=== PATIENT | female | born 1995 | race African-American/Black ===

== ENCOUNTER 2021-12-04 15:12 | Outpatient (CLI) | payer MEDICAID | END 2021-12-04 15:13 | disposition critical access hospital (66) | LOC: EMS 15:12 | DX: R45.851 Suicidal ideations (principal) | CPT/HCPCS: A0425; A0429; A0999 ==

== ENCOUNTER 2021-12-04 15:31 | Emergency (ER) | payer MEDICAID ==
[2021-12-04] MEDS ORDERED: LORazepam 1 MG TABLET PO STA (15:40)
--- NOTE | 2021-12-04 15:43 | ED Physician Documentation ---
PD HPI MHE - Stated complaint Stated Complaint: SI - History obtained from History obtained from: Patient - History of Present Illness Pain level max: 0 Pain level now: 0 - Additional information Additional information: Patient is a 26-year-old female who presents to the emergency department complaint of increase in anxiety. She states that she has been feeling more anxious at home. She states that she has a longstanding medical history that includes depression. She states that she had a suicide attempt about 6 to 7 years ago by cutting her wrist. But she adamantly denies feeling suicidal today. She states that she wanted her vital signs checked and so she called 911 for a vital sign check. She states that the paramedics asked if she wanted to have a mental health evaluation and she requested to go to [facility] where her psychiatrist is. She states that the paramedics then told her they cannot take her there and brought her here instead. Patient states she has been taking her medications as prescribed. She feels safe at home. She does state that she has been clean from drugs for about 2 months. She states that she occasionally is concerned that her old friends may come back to try to harm her. She states that she does not feel like they are trying to harm her today. Patient was asked 3-4 times by myself and by the nurse if she was suicidal or homicidal. The patient adamantly denies this every time. She states she has not been suicidal for a very long time. Review of Systems Ten Systems: 10 systems reviewed and negative Constitutional: denies: Fever, Chills Ears: denies: Ear pain Nose: denies: Rhinorrhea / runny nose, Congestion Throat: denies: Sore throat Cardiac: denies: Chest pain / pressure, Palpitations, Calf pain Respiratory: denies: Dyspnea, Cough, Wheezing GI: denies: Abdominal Pain, Nausea, Vomiting, Diarrhea, Hematemesis, Bloody / black stool : denies: Dysuria, Frequency, Hesitancy Skin: denies: Rash Musculoskeletal: denies: Neck pain, Back pain Neurologic: denies: Headache Psychiatric: reports: Anxiety. denies: Depressed, Suicidal, Homicidal, Hallucinations, Delusions, Insomnia PD PAST MEDICAL HISTORY - Past Medical History Past Medical History: Yes Psych: Anxiety, Bipolar disorder - Past Surgical History Past Surgical History: No - Allergies Allergies/Adverse Reactions: Allergies Allergy/AdvReac Type Severity Reaction Status Date / Time No Known Drug Allergies Allergy Verified 12/04/21 15:42 - Living Situation Living Situation: reports: With family Living Arrangement: reports: At home - Social History Does the pt smoke?: No Substance Use and Type: Other (Has a history of drug use, she states no drugs for 2 months) - Family History Family history: reports: Non contributory PD ED PE NORMAL - Vitals Vital signs reviewed: Yes - General General: Alert and oriented X 3, No acute distress, Well developed/nourished - HEENT HEENT: Atraumatic, PERRL, Moist mucous membranes - Neck Neck: Supple, no meningeal sign - Cardiac Cardiac: RRR, Strong equal pulses - Respiratory Respiratory: No respiratory distress, Clear bilaterally - Abdomen Abdomen: Soft, Non tender, Non distended - Derm Derm: Warm and dry - Extremities Extremities: No edema, No calf tenderness / cord - Neuro Neuro: Alert and oriented X 3 - Psych Psych: Other (Appears anxious) Results - Vitals Vitals: Vital Signs - 24 hr 12/04/21 12/04/21 15:33 16:18 Temperature 37.0 C Heart Rate 88 82 Respiratory 16 16 Rate Blood Pressure 126/86 H 108/80 O2 Saturation 97 97 Oxygen O2 Source Room air - Labs Labs: Laboratory Tests 12/04/21 12/04/21 12/04/21 15:45 15:45 15:45 WBC 9.9 RBC 4.21 Hgb 12.3 Hct 36.9 L MCV 87.6 MCH 29.2 MCHC 33.3 RDW 12.2 Plt Count 275 MPV 8.3 Neut # (Auto) 6.0 Lymph # (Auto) 3.1 [place] # (Auto) 0.7 Eos # (Auto) 0.0 Baso # (Auto) 0.0 Absolute Nucleated RBC 0.00 Nucleated RBC % 0.0 Sodium 136 Potassium 3.7 Chloride 105 Carbon Dioxide 25 Anion Gap 6.0 BUN 13 Creatinine 0.8 Estimated GFR (MDRD) 106 Glucose 101 H Calcium 9.0 Total Bilirubin 0.2 AST 12 ALT 10 Alkaline Phosphatase 81 Total Protein 7.5 Albumin 4.3 Globulin 3.2 Albumin/Globulin Ratio 1.3 Lipase 40 TSH 1.77 Urine Color Urine Clarity Urine pH Ur Specific [place] Urine Protein Urine Glucose (UA) Urine Ketones Urine Occult Blood Urine Nitrite Urine Bilirubin Urine Urobilinogen Ur Leukocyte Esterase Ur Microscopic Review Urine Culture Comments Urine HCG, Qual Last Dose Date Last Dose Time Salicylates < 6.0 Urine Opiates Screen Ur Oxycodone Screen Urine Methadone Screen Ur Propoxyphene Screen Acetaminophen < 10 L Ur Barbiturates Screen Ur Tricyclics Screen Ur Phencyclidine Scrn Ur Amphetamine Screen U Methamphetamines Scrn U Benzodiazepines Scrn [place] Urine Cocaine Screen U Cannabinoids Screen Ethyl Alcohol < 5.0 SARS-CoV-2 (PCR) 12/04/21 12/04/21 12/04/21 15:45 16:08 16:12 WBC RBC Hgb Hct MCV MCH MCHC RDW Plt Count MPV Neut # (Auto) Lymph # (Auto) [place] # (Auto) Eos # (Auto) Baso # (Auto) Absolute Nucleated RBC Nucleated RBC % Sodium Potassium Chloride Carbon Dioxide Anion Gap BUN Creatinine Estimated GFR (MDRD) Glucose Calcium Total Bilirubin AST ALT Alkaline Phosphatase Total Protein Albumin Globulin Albumin/Globulin Ratio Lipase TSH Urine Color YELLOW Urine Clarity CLEAR Urine pH 6.5 Ur Specific [place] <=1.005 Urine Protein NEGATIVE Urine Glucose (UA) NEGATIVE Urine Ketones NEGATIVE Urine Occult Blood NEGATIVE Urine Nitrite NEGATIVE Urine Bilirubin NEGATIVE Urine Urobilinogen 0.2 (NORMAL) Ur Leukocyte Esterase NEGATIVE Ur Microscopic Review NOT INDICATED Urine Culture Comments NOT INDICATED Urine HCG, Qual NEGATIVE Last Dose Date UNK Last Dose Time UNK Salicylates Urine Opiates Screen NEGATIVE Ur Oxycodone Screen NEGATIVE Urine Methadone Screen NEGATIVE Ur Propoxyphene Screen NEGATIVE Acetaminophen Ur Barbiturates Screen NEGATIVE Ur Tricyclics Screen NEGATIVE Ur Phencyclidine Scrn NEGATIVE Ur Amphetamine Screen NEGATIVE U Methamphetamines Scrn NEGATIVE U Benzodiazepines Scrn NEGATIVE [place] 0.76 Urine Cocaine Screen NEGATIVE U Cannabinoids Screen NEGATIVE Ethyl Alcohol SARS-CoV-2 (PCR) NOT DETECTED PD MEDICAL DECISION MAKING - ED course Complexity details: reviewed results, re-evaluated patient, considered differential, d/w patient ED course: No acute findings on laboratory testing. Patient denies any suicidal or homicidal ideation. She states she was feeling anxious earlier today but that feeling has resolved as well. She is able to contract for safety. She would like to go home at this time. She feels safe at home and will be there with her family. Patient does not want any medications at this time. She will follow-up with her psychiatrist. Patient counseled regarding signs and symptoms for which I believe and urgent re-evaluation would be necessary. Patient with good understanding of and agreement to plan and is comfortable going home at this time This document was made in part using voice recognition software. While efforts are made to proofread this document, sound alike and grammatical errors may occur. Patient declines a social work evaluation as well. Departure - Departure Disposition: Home, Self Care Clinical Impression: Anxiety Depression Qualifiers: Depression Type: unspecified Qualified Code(s): F32.A - Depression, unspecified Condition: Good Instructions: ED Depression Follow-Up: Your,doctor in 1 week [Other] Comments: Please follow-up with your doctor and your psychiatrist for further care. Your testing does not show any acute abnormalities today. You have stated multiple times that you are not suicidal. You have contracted for safety. Crisis Line and is available to talk to someone [email or web address] is also available to chat with someone online if you prefer. There are also many resources on this website and apps for your phone to help with your mental health You can also text the word START to [phone] to chat with someome via text. Discharge Date/Time: 12/04/21 16:48
[2021-12-04 15:50] LABS: HCT - HEMATOCRIT 36.9 % (37.0-47.0); HGB - HEMOGLOBIN 12.3 g/dL (12.0-16.0); LYMPHOCYTES # (AUTO) 3.1 10^3/uL (1.5-3.5); LYMPHOCYTES % (AUTO) 31.8 %; MEAN CORPUSCULAR HEMOGLOBIN 29.2 pg (27.0-31.0); MEAN CORPUSCULAR HGB CONC 33.3 g/dL (32.0-36.0); MEAN CORPUSCULAR VOLUME 87.6 fL (81.0-99.0); MEAN PLATELET VOLUME 8.3 fL (7.9-10.8); MONOCYTES # (AUTO) 0.7 10^3/uL (0.0-1.0); MONOCYTES % (AUTO) 7.1 %; NEUTROPHILS % (AUTO) 60.9 %; PLT - PLATELET COUNT 275 10^3/uL (130-450); RED BLOOD COUNT 4.21 10^6/uL (4.20-5.40); RED CELL DISTRIBUTION WIDTH 12.2 % (12.0-15.0); WHITE BLOOD COUNT 9.9 x10^3/uL (4.8-10.8)
[2021-12-04 16:04] LABS: ACETAMINOPHEN < 10 ug/mL (10-30); ALBUMIN 4.3 g/dL (3.2-5.5); ALBUMIN/GLOBULIN RATIO 1.3 (1.0-2.2); ALKALINE PHOSPHATASE 81 IU/L (42-121); ALT ALANINE AMINOTRANSFERASE 10 IU/L (10-60); AST ASPARTATE AMINOTRANSFERASE 12 IU/L (10-42); BILIRUBIN,TOTAL 0.2 mg/dL (0.2-1.0); BUN - BLOOD UREA NITROGEN 13 mg/dL (6-20); CARBON DIOXIDE - CO2 25 mmol/L (21-32); CHLORIDE 105 mmol/L (101-111); CREATININE 0.8 mg/dL (0.4-1.0); ETOH - ETHANOL < 5.0 mg/dL; GFR - MDRD 106 (>89); GLUCOSE 101 mg/dL (70-100); LIPASE 40 U/L (22-51); POTASSIUM 3.7 mmol/L (3.5-5.0); SALICYLATE < 6.0 mg/dL; SODIUM 136 mmol/L (135-145); TOTAL PROTEIN 7.5 g/dL (6.7-8.2)
[2021-12-04 16:16] LABS: MUDS CUTOFF CONCENTRATIONS CUTOFF CONC BELOW:
[2021-12-04 16:17] LABS: LITHIUM 0.76 mmol/L
[2021-12-04 16:17] LABS: BILIRUBIN,URINE NEGATIVE (NEGATIVE); GLUCOSE, URINE (UA) NEGATIVE (NEGATIVE); KETONES,URINE (UA) NEGATIVE (NEGATIVE); LEUKOCYTE ESTERASE, URINE NEGATIVE (NEGATIVE); NITRITE,URINE NEGATIVE (NEGATIVE); OCCULT BLOOD,URINE NEGATIVE (NEGATIVE); PH,URINE 6.5 PH (5.0-7.5); PROTEIN,URINE NEGATIVE (NEGATIVE); UROBILINOGEN,URINE 0.2 (NORMAL) E.U./dL (NORMAL)
[2021-12-04 16:18] VITALS: BP 108/80
[2021-12-04 16:24] LABS: CLARITY,URINE CLEAR (CLEAR)
[2021-12-04 16:25] LABS: HCG UR QUAL NEGATIVE
[2021-12-04 16:42] LABS: AMPHETAMINE SCREEN,URINE NEGATIVE (NEGATIVE); BARBITURATE SCREEN,UR NEGATIVE (NEGATIVE); BENZODIAZEPINES SCREEN, URINE NEGATIVE (NEGATIVE); COCAINE SCREEN URINE NEGATIVE (NEGATIVE); METHADONE SCREEN, URINE NEGATIVE (NEGATIVE); METHAMPHETAMINES SCREEN, URINE NEGATIVE (NEGATIVE); OPIATE SCREEN, URINE NEGATIVE (NEGATIVE); OXYCODONE SCREEN, URINE NEGATIVE (NEGATIVE); PROPOXYPHENE SCREEN, URINE NEGATIVE (NEGATIVE); THC CANNABINOID SCREEN, URINE NEGATIVE (NEGATIVE); TRICYCLIC ANTIDEPRESSANT,URINE NEGATIVE (NEGATIVE)
== END 2021-12-04 16:48 | disposition home or self-care (01) ==
LOC: ED 15:31
DX: F41.9 Anxiety disorder, unspecified (principal); F32.A Depression, unspecified; Z20.822 Contact with and (suspected) exposure to COVID-19
CPT/HCPCS: 36415; 80053; 80178; 80306; 80307; 80320; 80329; 81001; 81003; 81025; 83690; 84443; 85025; 87086; 99283; 99284

== ENCOUNTER 2022-02-09 13:03 | Outpatient (CLI) | payer MEDICAID | END 2022-02-09 13:04 | disposition critical access hospital (66) | LOC: EMS 13:03 | DX: R46.4 Slowness and poor responsiveness (principal); R47.81 Slurred speech; F41.9 Anxiety disorder, unspecified | CPT/HCPCS: A0425; A0429; A0999 ==

== ENCOUNTER 2022-02-09 13:30 | Emergency (ER) | payer MEDICAID ==
[2022-02-09 14:23] LABS: HCT - HEMATOCRIT 40.5 % (37.0-47.0); HGB - HEMOGLOBIN 13.4 g/dL (12.0-16.0); LYMPHOCYTES # (AUTO) 2.5 10^3/uL (1.5-3.5); LYMPHOCYTES % (AUTO) 23.4 %; MEAN CORPUSCULAR HEMOGLOBIN 28.4 pg (27.0-31.0); MEAN CORPUSCULAR HGB CONC 33.1 g/dL (32.0-36.0); MEAN CORPUSCULAR VOLUME 85.8 fL (81.0-99.0); MEAN PLATELET VOLUME 8.7 fL (7.9-10.8); MONOCYTES # (AUTO) 0.7 10^3/uL (0.0-1.0); NEUTROPHILS # (AUTO) 7.6 10^3/uL (1.5-6.6); NEUTROPHILS % (AUTO) 70.4 %; PLT - PLATELET COUNT 312 10^3/uL (130-450); RED BLOOD COUNT 4.72 10^6/uL (4.20-5.40); RED CELL DISTRIBUTION WIDTH 11.9 % (12.0-15.0); WHITE BLOOD COUNT 10.8 x10^3/uL (4.8-10.8)
[2022-02-09 14:40] LABS: ACETAMINOPHEN < 10 ug/mL (10-30); ALBUMIN 4.8 g/dL (3.2-5.5); ALBUMIN/GLOBULIN RATIO 1.5 (1.0-2.2); ALKALINE PHOSPHATASE 83 IU/L (42-121); ALT ALANINE AMINOTRANSFERASE 11 IU/L (10-60); AST ASPARTATE AMINOTRANSFERASE 14 IU/L (10-42); BILIRUBIN,TOTAL 0.4 mg/dL (0.2-1.0); BUN - BLOOD UREA NITROGEN 13 mg/dL (6-20); CALCIUM 9.9 mg/dL (8.5-10.3); CARBON DIOXIDE - CO2 27 mmol/L (21-32); CHLORIDE 107 mmol/L (101-111); CREATININE 1.2 mg/dL (0.4-1.0); ETOH - ETHANOL < 5.0 mg/dL; GFR - MDRD 66 (>89); GLUCOSE 104 mg/dL (70-100); LIPASE 33 U/L (22-51); POTASSIUM 4.5 mmol/L (3.5-5.0); SALICYLATE < 6.0 mg/dL; SODIUM 143 mmol/L (135-145)
--- NOTE | 2022-02-09 14:54 | ED Physician Documentation ---
History of Present Illness - Stated complaint Stated Complaint: MHE - Chief complaint Chief Complaint: MHE - Additonal information Additional information: 26-year-old female comes to the emergency department requesting help with her drug use disorder. She states that she smoked some marijuana at home this morning. There is an underage child in the house her stepmom got mad at her and ordered her to leave the house. She states she has nowhere else to go. She also endorses methamphetamine use last night. She denies thoughts of self-harm or harm to others. She does smell heavily of cannabis and appears somewhat intoxicated at this time. However she is compliant. Evaluation of the [facility] shows the patient has multiple ER visits to our outlying hospitals for psychiatric disorder schizoaffective disorder as well as substance abuse Review of Systems Constitutional: denies: Fever, Chills Cardiac: reports: Reviewed and negative Respiratory: reports: Reviewed and negative GI: reports: Reviewed and negative : reports: Reviewed and negative Skin: reports: Reviewed and negative Musculoskeletal: reports: Reviewed and negative Neurologic: reports: Reviewed and negative PD PAST MEDICAL HISTORY - Past Medical History Psych: Anxiety, Bipolar disorder - Past Surgical History Past Surgical History: No - Allergies Allergies/Adverse Reactions: Allergies Allergy/AdvReac Type Severity Reaction Status Date / Time No Known Drug Allergies Allergy Verified 02/09/22 13:51 - Social History Does the pt smoke?: No Smoking Status: Never smoker Does the pt drink ETOH?: Yes Does the pt have substance abuse?: Yes - Immunizations Immunizations are current?: Yes PD ED PE NORMAL - General General: Alert and oriented X 3, No acute distress, Other (Smells heavily of cannabis) - HEENT HEENT: Atraumatic, Moist mucous membranes - Neck Neck: Supple, no meningeal sign, No adenopathy - Cardiac Cardiac: RRR, No murmur - Respiratory Respiratory: No respiratory distress, Clear bilaterally - Abdomen Abdomen: Normal bowel sounds, Soft, Non tender - Back Back: No CVA TTP, No spinal TTP - Derm Derm: Normal color, Warm and dry, No rash - Extremities Extremities: No deformity - Neuro Neuro: Alert and oriented X 3, digital retoucher 2-12 intact Eye Opening: Spontaneous Motor: Obeys Commands Verbal: Oriented GCS Score: 15 - Psych Psych: Other (No SI, HI, AH, VH. Appears under the influence of substances which may include cannabis. Smells heavily of cannabis. mildly slowed affected) Results - Vitals Vitals: Vital Signs - 24 hr 02/09/22 02/09/22 13:45 16:24 Temperature 36.1 C L 36.7 C Heart Rate 87 85 Respiratory 16 18 Rate Blood Pressure 96/71 99/57 L O2 Saturation 98 97 Oxygen O2 Source Room air - Labs Labs: Laboratory Tests 02/09/22 02/09/22 02/09/22 14:15 14:15 14:15 WBC 10.8 RBC 4.72 Hgb 13.4 Hct 40.5 MCV 85.8 MCH 28.4 MCHC 33.1 RDW 11.9 L Plt Count 312 MPV 8.7 Neut # (Auto) 7.6 H Lymph # (Auto) 2.5 [place] # (Auto) 0.7 Eos # (Auto) 0.0 Baso # (Auto) 0.0 Absolute Nucleated RBC 0.00 Nucleated RBC % 0.0 Sodium 143 Potassium 4.5 Chloride 107 Carbon Dioxide 27 Anion Gap 9.0 BUN 13 Creatinine 1.2 H Estimated GFR (MDRD) 66 L Glucose 104 H Calcium 9.9 Total Bilirubin 0.4 AST 14 ALT 11 Alkaline Phosphatase 83 Total Protein 8.0 Albumin 4.8 Globulin 3.2 Albumin/Globulin Ratio 1.5 Lipase 33 TSH 1.68 Urine Color Urine Clarity Urine pH Ur Specific [place] Urine Protein Urine Glucose (UA) Urine Ketones Urine Occult Blood Urine Nitrite Urine Bilirubin Urine Urobilinogen Ur Leukocyte Esterase Ur Microscopic Review Urine Culture Comments Urine HCG, Qual Salicylates < 6.0 Urine Opiates Screen Ur Oxycodone Screen Urine Methadone Screen Ur Propoxyphene Screen Acetaminophen < 10 L Ur Barbiturates Screen Ur Tricyclics Screen Ur Phencyclidine Scrn Ur Amphetamine Screen U Methamphetamines Scrn U Benzodiazepines Scrn Urine Cocaine Screen U Cannabinoids Screen Ethyl Alcohol < 5.0 SARS-CoV-2 (PCR) 02/09/22 02/09/22 14:46 14:58 WBC RBC Hgb Hct MCV MCH MCHC RDW Plt Count MPV Neut # (Auto) Lymph # (Auto) [place] # (Auto) Eos # (Auto) Baso # (Auto) Absolute Nucleated RBC Nucleated RBC % Sodium Potassium Chloride Carbon Dioxide Anion Gap BUN Creatinine Estimated GFR (MDRD) Glucose Calcium Total Bilirubin AST ALT Alkaline Phosphatase Total Protein Albumin Globulin Albumin/Globulin Ratio Lipase TSH Urine Color YELLOW Urine Clarity CLEAR Urine pH 6.0 Ur Specific [place] <=1.005 Urine Protein NEGATIVE Urine Glucose (UA) NEGATIVE Urine Ketones NEGATIVE Urine Occult Blood NEGATIVE Urine Nitrite NEGATIVE Urine Bilirubin NEGATIVE Urine Urobilinogen 0.2 (NORMAL) Ur Leukocyte Esterase NEGATIVE Ur Microscopic Review NOT INDICATED Urine Culture Comments NOT INDICATED Urine HCG, Qual NEGATIVE Salicylates Urine Opiates Screen NEGATIVE Ur Oxycodone Screen NEGATIVE Urine Methadone Screen NEGATIVE Ur Propoxyphene Screen NEGATIVE Acetaminophen Ur Barbiturates Screen NEGATIVE Ur Tricyclics Screen NEGATIVE Ur Phencyclidine Scrn NEGATIVE Ur Amphetamine Screen NEGATIVE U Methamphetamines Scrn NEGATIVE U Benzodiazepines Scrn NEGATIVE Urine Cocaine Screen NEGATIVE U Cannabinoids Screen POSITIVE H Ethyl Alcohol SARS-CoV-2 (PCR) DETECTED A PD MEDICAL DECISION MAKING - ED course Complexity details: reviewed results, re-evaluated patient, cherri villarreal nicole, d/w patient ED course: 26-year-old female presented to the emergency department requesting help with her drug use disorder. She smokes cannabis and her stepmom at home got upset with her as there is an underage child. She kicked her out. She presented to the emergency department without thoughts of self harm to herself or to others. She did appear intoxicated and under the influence of cannabis and smelled heavily of such. Labs obtained today in the emergency department are unremarkable with the exception of the urine drug screen which was pertinently positive for cannabis. Patient did endorse methamphetamine use last week. She was allowed time to metabolize the cannabis here in the emergency department and on reevaluation appears clinically sober. She was seen by social work and given outpatient drug use resources. She has obtained a safe ride home and is discharged in stable condition. Departure - Departure Disposition: 01 Home, Self Care Clinical Impression: Cannabis abuse with intoxication Condition: Stable Record reviewed to determine appropriate education?: Yes Instructions: ED Drug Abuse General Comments: [place]mil[place]o I encourage you to use the resources given to you by the social media community manager to help with your drug use disorder. If at any point you ever feel unsafe, have thoughts of self-harm or harm to others please return immediately to the ER.
[2022-02-09 15:05] LABS: MUDS CUTOFF CONCENTRATIONS CUTOFF CONC BELOW:
[2022-02-09 15:06] LABS: BILIRUBIN,URINE NEGATIVE (NEGATIVE); GLUCOSE, URINE (UA) NEGATIVE (NEGATIVE); KETONES,URINE (UA) NEGATIVE (NEGATIVE); LEUKOCYTE ESTERASE, URINE NEGATIVE (NEGATIVE); NITRITE,URINE NEGATIVE (NEGATIVE); OCCULT BLOOD,URINE NEGATIVE (NEGATIVE); PROTEIN,URINE NEGATIVE (NEGATIVE); UROBILINOGEN,URINE 0.2 (NORMAL) E.U./dL (NORMAL)
[2022-02-09 15:10] LABS: CLARITY,URINE CLEAR (CLEAR); HCG UR QUAL NEGATIVE
[2022-02-09 15:20] LABS: AMPHETAMINE SCREEN,URINE NEGATIVE (NEGATIVE); BARBITURATE SCREEN,UR NEGATIVE (NEGATIVE); BENZODIAZEPINES SCREEN, URINE NEGATIVE (NEGATIVE); COCAINE SCREEN URINE NEGATIVE (NEGATIVE); METHADONE SCREEN, URINE NEGATIVE (NEGATIVE); METHAMPHETAMINES SCREEN, URINE NEGATIVE (NEGATIVE); OPIATE SCREEN, URINE NEGATIVE (NEGATIVE); OXYCODONE SCREEN, URINE NEGATIVE (NEGATIVE); PROPOXYPHENE SCREEN, URINE NEGATIVE (NEGATIVE); THC CANNABINOID SCREEN, URINE POSITIVE (NEGATIVE); TRICYCLIC ANTIDEPRESSANT,URINE NEGATIVE (NEGATIVE)
[2022-02-09 16:25] VITALS: BP 99/57
== END 2022-02-09 17:01 | disposition home or self-care (01) ==
LOC: ED 13:30
DX: F12.129 Cannabis abuse with intoxication, unspecified (principal); Z20.822 Contact with and (suspected) exposure to COVID-19
CPT/HCPCS: 36415; 80053; 80306; 80307; 80320; 80329; 81001; 81003; 81025; 83690; 84443; 85025; 87086; 99283

== ENCOUNTER 2022-08-31 15:48 | Outpatient (CLI) | payer MEDICAID | END 2022-08-31 15:49 | disposition critical access hospital (66) | LOC: EMS 15:48 | DX: F15.90 Other stimulant use, unspecified, uncomplicated (principal) | CPT/HCPCS: A0425; A0429 ==

== ENCOUNTER 2022-08-31 16:07 | Emergency (ER) | payer BC, MEDICAID ==
--- NOTE | 2022-08-31 16:10 | ED Physician Documentation ---
History of Present Illness - Stated complaint Stated Complaint: DETOX - History obtained from History obtained from: Patient, EMS - Additonal information Additional information: 27-year-old woman brought in by ambulance. They report is that she wants to go to detox for meth use. Patient states she wants to go to someone else's house in [place]. No SI or HI. PD PAST MEDICAL HISTORY - Past Medical History Psych: Anxiety, Bipolar disorder - Past Surgical History Past Surgical History: No - Allergies Allergies/Adverse Reactions: Allergies Allergy/AdvReac Type Severity Reaction Status Date / Time No Known Drug Allergies Allergy Verified 02/09/22 13:51 - Social History Does the pt smoke?: No Smoking Status: Never smoker Does the pt drink ETOH?: Yes Does the pt have substance abuse?: Yes - Immunizations Immunizations are current?: Yes PD ED PE NORMAL - Vitals Vital signs reviewed: Yes - General General: Alert and oriented X 3, No acute distress - Neuro Neuro: Alert and oriented X 3, Normal speech - Psych Psych: Normal mood, Normal affect Results - Vitals Vitals: Oxygen O2 Source Room air PD Medical Decision Making - ED course ED course: 27-year-old woman has ongoing methamphetamine use and declines detox. There is no emergency medical condition. She is more worried about how she will get to her friend's house by bus than her methamphetamine use here. Departure - Departure Disposition: 01 Home, Self Care Clinical Impression: Methamphetamine abuse Condition: Good Record reviewed to determine appropriate education?: Yes Instructions: ED Drug Abuse General Comments: We encourage you to stop using drugs. Return for new or worsening symptoms. If you do decide you want a go to detox, the closest is: [address] [address] Phone:
[2022-08-31 16:25] VITALS: BP 132/96
== END 2022-08-31 16:20 | disposition home or self-care (01) ==
LOC: ED 16:07
DX: F15.10 Other stimulant abuse, uncomplicated (principal)
CPT/HCPCS: 99283

== ENCOUNTER 2022-08-31 17:13 | Emergency (ER) | payer MEDICAID ==
[2022-08-31 17:26] VITALS: BP 140/100
--- NOTE | 2022-08-31 17:55 | ED Physician Documentation ---
History of Present Illness - Stated complaint Stated Complaint: DETOX - Chief complaint Chief Complaint: General - History obtained from History obtained from: Patient - Additonal information Additional information: She called [facility] detox, they asked questions of her and said she would be admitted but in the questioning she stated she was suicidal. Patient states to me she was suicidal 3 months ago and is not currently suicidal. PD PAST MEDICAL HISTORY - Past Medical History Psych: Anxiety, Bipolar disorder - Past Surgical History Past Surgical History: No - Allergies Allergies/Adverse Reactions: Allergies Allergy/AdvReac Type Severity Reaction Status Date / Time No Known Drug Allergies Allergy Verified 08/31/22 17:24 - Social History Does the pt smoke?: No Smoking Status: Never smoker Does the pt drink ETOH?: Yes Does the pt have substance abuse?: Yes - Immunizations Immunizations are current?: Yes PD ED PE NORMAL - Vitals Vital signs reviewed: Yes - General General: Alert and oriented X 3, No acute distress - HEENT HEENT: PERRL, EOMI - Neck Neck: Supple, no meningeal sign, No bony TTP - Cardiac Cardiac: RRR, No murmur - Respiratory Respiratory: No respiratory distress, Clear bilaterally - Abdomen Abdomen: Non tender - Neuro Neuro: Alert and oriented X 3, Normal speech Results - Vitals Vitals: Vital Signs - 24 hr 08/31/22 17:24 Temperature 36.5 C Heart Rate 120 H Respiratory 16 Rate Blood Pressure 140/100 H O2 Saturation 96 Oxygen O2 Source Room air PD Medical Decision Making - ED course ED course: She denies suicidal or homicidal ideation to me. There is no reason she could not go to detox from my perspective. In fact it would be a very good idea. Departure - Departure Disposition: 01 Home, Self Care Clinical Impression: Methamphetamine abuse Condition: Good Record reviewed to determine appropriate education?: Yes Instructions: ED Drug Abuse General Comments: Go directly to the detox center. Return for new or worsening symptoms.
== END 2022-08-31 18:14 | disposition home or self-care (01) ==
LOC: ED 17:13
DX: F15.10 Other stimulant abuse, uncomplicated (principal); F31.9 Bipolar disorder, unspecified; F41.9 Anxiety disorder, unspecified

== ENCOUNTER 2023-07-05 13:00 | Outpatient (CLI) | payer MEDICAID ==
--- NOTE | 2023-07-05 15:43 | XRAY Report ---
PROCEDURE: Chest 2V INDICATIONS: BRONCHITIS TECHNIQUE: 2 views of the chest were acquired. COMPARISON: None. FINDINGS: Surgical changes and devices: None. Lungs and pleura: No pleural effusions or pneumothorax. Mild bilateral perihilar bronchial wall thic kening. No focal pulmonary consolidation. Mediastinum: Mediastinal contours appear normal. Heart size is normal. Bones and chest wall: No suspicious bony lesions. Overlying soft tissues appear unremarkable. IMPRESSION: 1.Mild bilateral perihilar bronchial wall thickening which may represent reactive airways disease and /or viral pneumonia. 2.No focal pulmonary consolidation. Reviewed by: Leann Lawrence MD on 07/05/2023 3:41 PM PST Approved by: Leann Lawrence MD on 07/05/2023 3:41 PM PST Station ID: [id number]
== END 2023-07-05 13:15 | disposition home or self-care (01) ==
LOC: DI.N 13:00
PROVIDERS: ATTEND Physician Assistant Medical
DX: J40 Bronchitis, not specified as acute or chronic (principal)